=== PATIENT | female | born 1995 | race African-American/Black ===

== ENCOUNTER 2022-04-10 10:23 | Emergency (ER) | payer OTHER ==
[2022-04-10] MEDS ORDERED: Acetaminophen 500 MG TAB ONE (11:13)
[2022-04-10 11:53] LABS: Bilirubin Neg (Negative); Blood, Urine Negative (Negative); Clarity Clear (Clear); Glucose, Urine (Dipstick) Normal (Negative); Ketone, Urine Negative (Negative); Leukocyte Negative (Negative); Nitrite Negative (Negative); Protein, Urine (Dipstick) Negative (Neg-Trace)
[2022-04-10 12:02] LABS: Hemoglobin 10.4 g/dL (12.0-15.5); MDiff Complete? YES; Mean Corpuscular Hemoglobin 29.9 pg (27.0-33.0); Mean Corpuscular Volume 87.9 fl (81.6-98.3); Mean Platelet Volume 10.6 fl (7.4-10.4); Platelet Count 165 10x3/uL (150-450); RBC Distribution Width 13.2 % (11.5-14.5); Red Blood Cell (RBC) Count 3.48 10x6/uL (3.90-5.03); White Blood Cell (WBC) Count 6.8 10x3/uL (3.5-10.5)
[2022-04-10 12:11] LABS: ALT (SGPT) 17 U/L (8-55); AST (SGOT) 34 U/L (5-34); Albumin 3.2 g/dL (3.5-5.0); Alkaline Phosphatase 243 U/L (40-110); Anion Gap 15 mmol/L (10-20); BUN (Urea Nitrogen) Less than 4 mg/dL (7.0-18.7); Bilirubin, Total 0.7 mg/dL (0.2-1.2); CK (CPK) 26 U/L (29-168); Calc. Creatinine Clearance 0 mL/min (70-130); Carbon Dioxide 19 mmol/L (22-29); Chloride 104 mmol/L (98-107); Globulin 3.8 g/dL (2.4-3.5); Glucose 98 mg/dL (70-105); Potassium 3.7 mmol/L (3.5-5.1); Sodium 134 mmol/L (136-145)
[2022-04-10 12:36] LABS: SARS-CoV-2 NAA Rapid Test DETECTED (NotDetected)
[2022-04-10 12:38] LABS: Band 2 % (5-11); Lymphocytes 10 % (21-51); Monocytes 9 % (0-10); Neutrophil 79 % (42-75)
[2022-04-10 12:41] LABS: Hypochromia SLIGHT = 6-15 cells (100X) (0-5/hpf)
[2022-04-10 12:42] LABS: Platelet Morphology Comment Appears Adequate; Polychromasia SLIGHT = 2-3 cells (100X) (0-2/hpf)
== END 2022-04-10 13:00 | disposition home or self-care (01) ==
LOC: CSHERS 10:23
DX: O98.512 Other viral diseases complicating pregnancy, second trimester (principal); U07.1 COVID-19; M79.605 Pain in left leg; M79.604 Pain in right leg
CPT/HCPCS: 80053; 81003; 82550; 85025; 87804; 93970; 96360; U0002

== ENCOUNTER 2022-04-19 10:32 | Inpatient (IN) | payer OTHER ==
[2022-04-19] MEDS ORDERED: Carboprost 250 MCG/ML AMP IM PRN (11:06)
[2022-04-19] MEDS ORDERED: Diphenoxylate HCl/Atropine Tablet PO PRN (11:06)
[2022-04-19] MEDS ORDERED: Ondansetron PF 4 MG/2 ML Vial IVP PRN ×2 (11:06→21:46)
[2022-04-19] MEDS ORDERED: Lidocaine 1% (PF) 30 ML VIAL SC PRN (11:06)
[2022-04-19] MEDS ORDERED: hydrALAZINE 20 MG/ML VIAL SLOW IVP PRN (11:06)
[2022-04-19] MEDS ORDERED: Acetaminophen 500 MG TAB PO PRN (11:06)
[2022-04-19] MEDS ORDERED: Promethazine HCl 25 MG/ML VIAL IM PRN ×2 (11:06→21:46)
[2022-04-19] MEDS ORDERED: Misoprostol 200 MCG TAB PR PRN (11:06)
[2022-04-19] MEDS ORDERED: NS w/ Oxytocin 30 units 500 ML IV SCH (11:15)
[2022-04-19 11:27] VITALS: BMI 41.0
[2022-04-19] MEDS ORDERED: Misoprostol 100 MCG TAB ONE (12:23)
[2022-04-19 13:14] LABS: Hemoglobin 11.3 g/dL (12.0-15.5); Mean Corpuscular HGB CONC 34.5 g/dL (32.0-36.0); Mean Corpuscular Hemoglobin 30.2 pg (27.0-33.0); Mean Corpuscular Volume 87.7 fl (81.6-98.3); Mean Platelet Volume 11.3 fl (7.4-10.4); Platelet Count 182 10x3/uL (150-450); RBC Distribution Width 13.2 % (11.5-14.5); Red Blood Cell (RBC) Count 3.74 10x6/uL (3.90-5.03); White Blood Cell (WBC) Count 4.7 10x3/uL (3.5-10.5)
[2022-04-19 13:19] LABS: ALT (SGPT) 17 U/L (8-55); AST (SGOT) 23 U/L (5-34); Albumin 3.3 g/dL (3.5-5.0); Alkaline Phosphatase 294 U/L (40-110); Anion Gap 17 mmol/L (10-20); BUN (Urea Nitrogen) 7 mg/dL (7.0-18.7); Bilirubin, Total 1.3 mg/dL (0.2-1.2); Calc. Creatinine Clearance 194 mL/min (70-130); Calcium 8.9 mg/dL (7.8-10.44); Carbon Dioxide 21 mmol/L (22-29); Chloride 105 mmol/L (98-107); Globulin 3.5 g/dL (2.4-3.5); Glucose 67 mg/dL (70-105); Protein, Total 6.8 g/dL (6.0-8.3); Sodium 139 mmol/L (136-145)
[2022-04-19 13:38] LABS: Syphilis Antibody Nonreactive (Nonreactive); Syphilis Antibody Index 0.07 S/CO (<1.00 Non-Reactive)
[2022-04-19 13:39] LABS: Hep B Surf Ag Non-Reactive S/CO (NonReactive)
[2022-04-19 13:48] LABS: HBSAg Index 0.23 S/CO (0-0.99)
[2022-04-19 13:51] LABS: SARS-CoV-2 NAA Rapid Test DETECTED (NotDetected)
[2022-04-19 14:44] LABS: Creatinine, Urine 29.19 mg/dL (47-110); Protein, Urine Random Quant Less than 10 mg/dL (1-14)
[2022-04-19] MEDS ORDERED: Misoprostol 100 MCG TAB VAG SCH (15:00)
[2022-04-19] MEDS ORDERED: Fentanyl 100 MCG/2 ML VIAL SLOW IVP SCH (20:15)
[2022-04-19] MEDS ORDERED: Lorazepam 2 MG/ML VIAL SLOW IVP PRN (20:34)
[2022-04-19] MEDS ORDERED: Calcium Gluc 4.6 MEQ/10 ML (100 MG/ML) SLOW IVP PRN (20:34)
[2022-04-19] MEDS ORDERED: Magnesium Sulfate 20 gm/500 ml 20 GM/500 ML BAG ONE (20:36)
[2022-04-19] MEDS ORDERED: Magnesium Sulfate 20 gm/500 ml 20 GM/500 ML BAG IVPB SCH (20:45)
[2022-04-19] MEDS ORDERED: Fentanyl 2 mcg/Bup 0.1% Cadd 100 ML ONE (20:51)
[2022-04-19] MEDS ORDERED: Lactated Ringer's 500 ML IV PRN (21:46)
[2022-04-19] MEDS ORDERED: ePHEDrine Sulfate 50 MG/10 ML VIAL SLOW IVP PRN (21:46)
[2022-04-19] MEDS ORDERED: Moisturizing Cream (Eucerin) 113 GM JAR TOP PRN (21:46)
[2022-04-19] MEDS ORDERED: diphenhydrAMINE 50 MG/ML VIAL IVP PRN (21:46)
[2022-04-19] MEDS ORDERED: Naloxone HCl 0.4 mg/ml Vial IVP PRN ×2 (21:46)
[2022-04-19] MEDS ORDERED: Acetaminophen 325 MG TAB PO PRN (21:46)
[2022-04-19] MEDS ORDERED: Communication Order-Pharmacy FS SCH (22:00)
[2022-04-20] MEDS: Fentanyl 2 mcg/Bupivacaine 0.1% Cassette 100 ML EPIDURAL SCH ×2 (02:55→09:24)
[2022-04-20] MEDS ORDERED: NS w/ Oxytocin 30 units 500 ML ONE (05:45)
[2022-04-20] MEDS: Lactated Ringer's 1,000 ML IV SCH ×2 (08:23→16:07)
[2022-04-20 09:37] LABS: #Monocytes 0.6 10x3/uL (0.0-1.1); #Neutrophils 6.6 10x3/uL (1.5-8.4); %Basophils 0.2 % (0.0-2.0); %Lymphocytes 19.5 % (18.0-47.0); %Monocytes 6.3 % (0.0-10.0); %Neutrophils 73.6 % (40.0-75.0); Hemoglobin 12.3 g/dL (12.0-15.5); Mean Corpuscular HGB CONC 34.3 g/dL (32.0-36.0); Mean Corpuscular Hemoglobin 30.4 pg (27.0-33.0); Mean Corpuscular Volume 88.6 fl (81.6-98.3); Mean Platelet Volume 10.8 fl (7.4-10.4); Platelet Count 223 10x3/uL (150-450); RBC Distribution Width 13.2 % (11.5-14.5); Red Blood Cell (RBC) Count 4.05 10x6/uL (3.90-5.03)
[2022-04-20 09:41] LABS: ALT (SGPT) 15 U/L (8-55); AST (SGOT) 24 U/L (5-34); Albumin 3.1 g/dL (3.5-5.0); Alkaline Phosphatase 309 U/L (40-110); Anion Gap 15 mmol/L (10-20); BUN (Urea Nitrogen) Less than 4 mg/dL (7.0-18.7); Bilirubin, Total 1.1 mg/dL (0.2-1.2); Calc. Creatinine Clearance 197 mL/min (70-130); Calcium 7.6 mg/dL (7.8-10.44); Carbon Dioxide 19 mmol/L (22-29); Chloride 105 mmol/L (98-107); Globulin 4.2 g/dL (2.4-3.5); Glucose 88 mg/dL (70-105); Magnesium 6.3 mg/dL (1.6-2.6); Protein, Total 7.3 g/dL (6.0-8.3); Sodium 135 mmol/L (136-145)
[2022-04-20 15:07] LABS: Magnesium 6.5 mg/dL (1.6-2.6)
[2022-04-20] MEDS: Ibuprofen 800 MG TAB PO PRN ×2 (16:16→16:17)
[2022-04-21] MEDS: Ibuprofen 800 MG TAB PO SCH ×4 (00:41→16:34)
[2022-04-21 05:32] LABS: Magnesium 5.2 mg/dL (1.6-2.6)
[2022-04-21] MEDS ORDERED: NS w/ Oxytocin 30 units 500 ML IV SCH (14:36)
[2022-04-21] MEDS ORDERED: Benzocaine-Menthol 82.5 ML CAN TOP PRN (14:36)
[2022-04-21] MEDS ORDERED: diphenhydrAMINE 25 MG CAP PO PRN (14:36)
[2022-04-21] MEDS ORDERED: Preparation H Ointment 28 GM TUBE PR PRN (14:36)
[2022-04-21] MEDS ORDERED: Misoprostol 200 MCG TAB VAG PRN (14:36)
[2022-04-21] MEDS ORDERED: Lanolin Ointment 7 GM TUBE TOP PRN (14:36)
[2022-04-21] MEDS ORDERED: Bisacodyl 10 MG SUPP PR PRN (14:36)
[2022-04-21] MEDS ORDERED: Ondansetron PF 4 MG/2 ML Vial IVP PRN (14:36)
[2022-04-21] MEDS ORDERED: Milk Of Magnesia 30 ML UDCUP PO PRN (14:36)
[2022-04-21] MEDS ORDERED: Boostrix 0.5 ML (Tdap) VIAL IM ONE (14:36)
[2022-04-21] MEDS ORDERED: hydrALAZINE 20 MG/ML VIAL SLOW IVP PRN (14:36)
[2022-04-21] MEDS ORDERED: Ferrous Sulfate 325 MG TAB PO SCH (15:00)
[2022-04-21] MEDS ORDERED: Docusate 100 MG CAP PO SCH (15:00)
[2022-04-21] MEDS ORDERED: Prenatal Vitamin 1 TAB PO SCH (15:00)
[2022-04-21] MEDS: Ferrous Sulfate 325 MG TAB PO SCH (15:01)
[2022-04-21] MEDS: Docusate 100 MG CAP PO SCH (21:07)
[2022-04-22] MEDS: Ibuprofen 800 MG TAB PO SCH ×3 (00:05→18:33)
[2022-04-22] MEDS: Labetalol HCl 100 MG TAB PO SCH ×2 (09:10→21:31)
[2022-04-22] MEDS: Ferrous Sulfate 325 MG TAB PO SCH ×2 (09:10→18:35)
[2022-04-22] MEDS: Docusate 100 MG CAP PO SCH ×2 (09:10→21:31)
[2022-04-22] MEDS: Prenatal Vitamin 1 TAB PO SCH (09:10)
[2022-04-22] MEDS ORDERED: hydrALAZINE 20 MG/ML VIAL SLOW IVP PRN (16:57)
[2022-04-22] MEDS ORDERED: hydrALAZINE 20 MG/ML VIAL SLOW IVP SCH (17:00)
[2022-04-23] MEDS: Ibuprofen 800 MG TAB PO SCH ×3 (00:20→17:58)
[2022-04-23] MEDS: Ferrous Sulfate 325 MG TAB PO SCH ×2 (09:19→18:00)
[2022-04-23] MEDS: Docusate 100 MG CAP PO SCH ×2 (09:19→21:24)
[2022-04-23] MEDS: Prenatal Vitamin 1 TAB PO SCH (09:19)
[2022-04-23] MEDS: Labetalol HCl 200 MG TAB PO SCH ×2 (09:20→20:10)
[2022-04-23 20:30] VITALS: BP 143/91; TEMP 98.2
[2024-04-21] MEDS ORDERED: Bupivacaine/Epinephrine 0.25% 30 ML VIAL ONE (08:00)
[2024-04-21] MEDS ORDERED: Bupivacaine 0.25% HCL 30 ML VIAL ONE (08:00)
== END 2022-04-23 22:00 | disposition home or self-care (01) | DRG 805 ==
LOC: CSHLD 10:32 → UNDOADMIN 10:32 → CSHLD 04-20 06:39 → CSHPP 04-21 14:45
PROVIDERS: ADMIT Emergency Medicine; ATTEND Emergency Medicine
PROC: 3E0P7VZ Introduction of Hormone into Female Reproductive, Via Natural or Artificial Opening (ICD-10-PCS; 2022-04-19)
PROC: 8E0ZXY6 Isolation (ICD-10-PCS; 2022-04-19)
PROC: 0U7C7ZZ Dilation of Cervix, Via Natural or Artificial Opening (ICD-10-PCS; 2022-04-19)
PROC: 10E0XZZ Delivery of Products of Conception, External Approach (ICD-10-PCS; principal; 2022-04-20)
PROC: 0KQM0ZZ Repair Perineum Muscle, Open Approach (ICD-10-PCS; 2022-04-20)
DX: O36.5930 Maternal care for other known or suspected poor fetal growth, third trimester, not applicable or unspecified (principal); U07.1 COVID-19; Z37.0 Single live birth; O10.92 Unspecified pre-existing hypertension complicating childbirth; O98.52 Other viral diseases complicating childbirth; Z3A.37 37 weeks gestation of pregnancy; E66.9 Obesity, unspecified; O99.214 Obesity complicating childbirth; Z79.82 Long term (current) use of aspirin; O42.02 Full-term premature rupture of membranes, onset of labor within 24 hours of rupture; O11.4 Pre-existing hypertension with pre-eclampsia, complicating childbirth; O76 Abnormality in fetal heart rate and rhythm complicating labor and delivery; O99.02 Anemia complicating childbirth; D57.3 Sickle-cell trait; O32.8XX0 Maternal care for other malpresentation of fetus, not applicable or unspecified; O70.1 Second degree perineal laceration during delivery
CPT/HCPCS: 36415; 51702; 80053; 82570; 83735; 84156; 85025; 85027; 86780; 86850; 86900; 86901; 87340; 88307; J0360; J2590; J3010; J3475; S0020; U0002